=== PATIENT | male | born 1995 | race Caucasian/White ===

== ENCOUNTER 2020-12-02 17:21 | Inpatient (IN) | payer MEDICAID ==
[~2020-12-02] VITALS: Ht 157.5 cm; Wt 46.1 kg
[2020-12-02 18:15] LABS: BASOPHILS % (AUTO) 0.6 % (0.0-2.0); EOSINOPHILS % (AUTO) 0.4 % (1.0-6.0); HEMATOCRIT 49.5 % (41-53); HEMOGLOBIN 16.8 g/dL (13.5-17.5); LYMPHOCYTES # (AUTO) 1.9 K/uL (1.0-4.8); LYMPHOCYTES % (AUTO) 22.7 % (22.0-44.0); MEAN CORPUSCULAR HEMOGLOBIN 32.5 pg (26.0-34.0); MEAN CORPUSCULAR VOLUME 96 fL (80-100); MONOCYTES # (AUTO) 0.7 K/uL (0.1-1.0); MONOCYTES % (AUTO) 8.6 % (2.0-9.0); NEUTROPHILS # (AUTO) 5.6 K/uL (1.8-7.7); NEUTROPHILS % (AUTO) 67.7 % (40.0-70.0); PLATELET COUNT (AUTO) 192 K/uL (150-450); RED BLOOD CELL COUNT(AUTO) 5.18 MIL/uL (4.50-5.90); RED CELL DISTRIBUTION WIDTH 12.3 % (11.5-14.5)
[2020-12-02 18:28] LABS: ANION GAP 17 mmol/L (8-16); CALCIUM, TOTAL 9.9 mg/dL (8.8-10.5); CARBON DIOXIDE 23 mmol/L (22-29); CHLORIDE 99 mmol/L (98-107); CREATININE 0.93 mg/dL (0.60-1.30); GLOMERULAR FILTR. RATE CALC > 60 mL/min (>60); GLUCOSE,RANDOM 89 mg/dL (70-110); POTASSIUM 4.1 mmol/L (3.5-5.1); SODIUM SERUM 139 mmol/L (136-145); UREA NITROGEN, BLOOD 13 mg/dL (7-18)
[2020-12-02 18:32] LABS: ALANINE AMINOTRANSFERASE 37 U/L (12-78); ALBUMIN 5.2 g/dL (3.4-5.0); ALKALINE PHOSPHATASE 63 U/L (46-116); ASPARTATE AMINOTRANSFERASE 23 U/L (15-37); BILIRUBIN,TOTAL 1.2 mg/dL (0.1-1.0); TOTAL PROTEIN, SERUM 8.1 g/dL (6.4-8.2)
[2020-12-02 19:32] LABS: COVID AG,FIA SOURCE NASAL SWAB
[2020-12-02] MEDS ORDERED: QUEtiapine FUMARATE 100 MG TABLET PO PRN (19:45)
[2020-12-02] MEDS ORDERED: ZOLPIDEM TARTRATE 10 MG TABLET PO PRN (19:45)
[2020-12-02] MEDS ORDERED: LORazepam 2 MG TABLET PO PRN (19:45)
[2020-12-02] MEDS ORDERED: HALOPERIDOL LACTATE 5 MG/ML VIAL IM ONE ×2 (21:45)
[2020-12-02] MEDS ORDERED: DiphenhydrAMINE HCL 50 MG/ML VIAL IM ONE ×2 (21:45)
[2020-12-02] MEDS ORDERED: LORazepam 2 MG/ML VIAL IM ONE ×2 (21:45)
[2020-12-03 02:52] VITALS: BP 115/71
[2020-12-03 07:45] LABS: CHOL/HDL RATIO 4.8 (4.2-7.3)
[2020-12-03] MEDS ORDERED: NICOTINE 14 MG/24 HOUR PATCH TD PRN (07:45)
[2020-12-03] MEDS ORDERED: MAG HYDROX/AL HYDROX/SIMETH ES 30 ML SUSPENSION UDCUP PO PRN (07:45)
[2020-12-03] MEDS ORDERED: ONDANSETRON HCL 4 MG TABLET PO PRN (07:45)
[2020-12-03] MEDS ORDERED: ACETAMINOPHEN 325 MG TABLET PO PRN (07:45)
[2020-12-03] MEDS ORDERED: IBUPROFEN 400 MG TABLET PO PRN (07:45)
[2020-12-03] MEDS ORDERED: CloNIDine HCL 0.1 MG TABLET PO PRN (07:45)
[2020-12-03] MEDS ORDERED: DOCUSATE SODIUM 100 MG CAPSULE PO PRN (07:45)
[2020-12-03] MEDS ORDERED: ALBUTEROL SULFATE HFA 90 MCG/PUFF 8 GM INHALER IH PRN (07:45)
[2020-12-03] MEDS ORDERED: PETROLATUM,WHITE 28 GM JELLY TP PRN (07:45)
[2020-12-03] MEDS ORDERED: MAGNESIUM HYDROXIDE SUSPENSION 30 ML UDCUP PO PRN (07:45)
[2020-12-03] MEDS ORDERED: GuaiFENesin/D-METHORPHAN [SUGAR-FREE] 200-20MG/10 ML SYRUP UDCUP PO PRN (07:45)
[2020-12-03] MEDS ORDERED: LOPERAMIDE HCL 2 MG CAPSULE PO PRN (07:45)
[2020-12-03 08:32] VITALS: BP 124/82
[2020-12-03] MEDS: RisperiDONE 1 MG TABLET PO SCH ×2 (09:53→17:00)
[2020-12-03 16:24] VITALS: BP 133/76
[2020-12-04 05:56] VITALS: BP 135/78
[2020-12-04] MEDS: RisperiDONE 1 MG TABLET PO SCH ×2 (08:32→16:52)
[2020-12-04 08:47] VITALS: BP 129/77
[2020-12-04 16:22] VITALS: BP 127/79
[2020-12-05 02:03] VITALS: BP 123/72
[2020-12-05] MEDS: RisperiDONE 1 MG TABLET PO SCH ×2 (08:58→17:00)
[2020-12-05 09:09] VITALS: BP 134/78
[2020-12-05 16:27] VITALS: BP 115/63
[2020-12-06 01:56] VITALS: BP 133/90
[2020-12-06] MEDS: RisperiDONE 1 MG TABLET PO SCH ×2 (09:00→17:00)
[2020-12-06 09:21] VITALS: BP 128/75
[2020-12-06 16:16] VITALS: BP 140/85
[2020-12-07 02:42] VITALS: BP 125/68
[2020-12-07] MEDS: RisperiDONE 1 MG TABLET PO SCH (08:46)
[2020-12-07 09:03] VITALS: BP 114/62
== END 2020-12-07 13:15 | disposition home or self-care (01) | DRG 750 ==
LOC: EMS 17:21 → B3A 19:38
PROVIDERS: ADMIT Psychiatry & Neurology Child & Adolescent Psychiatry; ATTEND Psychiatry & Neurology Child & Adolescent Psychiatry
DX: F20.9 Schizophrenia, unspecified (principal); E46 Unspecified protein-calorie malnutrition; E78.5 Hyperlipidemia, unspecified; F12.90 Cannabis use, unspecified, uncomplicated; Z68.1 Body mass index [BMI] 19.9 or less, adult; Z20.822 Contact with and (suspected) exposure to COVID-19
CPT/HCPCS: 80053; 80061; 84443; 85025; 87426; 93005; 99291; G0480; J1200; J1630; J2060